=== PATIENT | male | born 1955 | race Caucasian/White ===

== ENCOUNTER → 2024-02-24 08:22 | Outpatient (REF) | payer MEDICARE, OTHER, SELFPAY ==
[2024-02-24 09:38] LABS: % Basophils 0.7 % (0-2); % Eosinophils 2.3 % (0-6); % Immature Granulocytes 0.2 % (0-0.5); % Lymphocytes 34.9 % (20.5-51.1); % Monocytes 10.1 % (1.7-9.3); % Neutrophils 51.8 % (42.2-75.2); Absolute Eosinophils 0.1 10^3/uL (0-0.7); Absolute Lymphocytes 1.5 10^3/uL (1.2-3.4); Absolute Monocytes 0.4 10^3/uL (0.1-0.6); Absolute Neutrophils 2.3 10^3/uL (1.4-6.5); Hematocrit 45.5 % (39.0-52.0); Hemoglobin 15.2 g/dL (13.0-18.0); Mean Corp Hgb Conc. 33.4 g/dL (33.0-37.0); Mean Corpuscular Hgb 30.5 pg (27.0-31.0); Mean Corpuscular Volume 91.4 fL (80.0-94.0); Nucleated Red Blood Cells % 0 % (-); Platelet Count 153 10^3/uL (130-400); Red Blood Cell Count 4.98 10^6/uL (4.70-6.10); Red Cell Dist. Width 12.2 % (11.5-14.5); White Blood Cell Count 4.4 10^3/uL (4.8-10.8)
[2024-02-24 10:11] LABS: ALT (SGPT) 21 U/L (0-50); AST (SGOT) 26 U/L (17-59); Albumin 4.2 g/dl (3.5-5.0); Alkaline Phosphatase 59 U/L (38-126); Blood Urea Nitrogen 23 mg/dl (9-20); Calcium 8.5 mg/dl (8.4-10.2); Carbon Dioxide 30 mmol/L (22-30); Chloride 104 mmol/L (98-107); Glucose 86 mg/dl (70-99); Potassium 4.2 mmol/L (3.5-5.1); Sodium 140 mmol/L (135-145); Total Bilirubin 0.8 mg/dl (0.2-1.3); Total Protein 6.7 g/dl (6.3-8.2); eGFR > 60.00
[2024-02-24 10:36] LABS: PSA, Total - Screen 1.45 ng/ml (0.0-4.0); TSH Reflex To Free T4 0.11 uIU/ml (0.47-4.68)
[2024-02-24 11:06] LABS: Free T4 1.36 ng/dl (0.78-2.19)
== END ==
LOC: HWLAB 08:22
PROVIDERS: ATTENDING PHYSICIAN Internal Medicine
DX: Z00.01 Encounter for general adult medical examination with abnormal findings (principal); E78.5 Hyperlipidemia, unspecified; E03.9 Hypothyroidism, unspecified; E66.3 Overweight; Z12.5 Encounter for screening for malignant neoplasm of prostate
CPT/HCPCS: 36415; 80053; 84439; 84443; 85025; G0103

== ENCOUNTER → 2024-03-13 07:04 | Outpatient (REF) | payer MEDICARE, OTHER, SELFPAY ==
[2024-03-13 10:11] LABS: HDL Cholesterol 51 mg/dl; LDL Cholesterol, Calculated 117 mg/dl; Total Cholesterol 185 mg/dl (50-199); Triglyceride 87 mg/dl (10-149); Very Low Density Lipoprotein 17 mg/dl (0-30)
[2024-03-13 10:42] LABS: TSH Reflex To Free T4 0.21 uIU/ml (0.47-4.68)
[2024-03-13 11:11] LABS: Free T4 1.37 ng/dl (0.78-2.19)
== END ==
LOC: HWLAB 07:04
PROVIDERS: ATTENDING PHYSICIAN Internal Medicine
DX: E03.9 Hypothyroidism, unspecified (principal); E78.5 Hyperlipidemia, unspecified
CPT/HCPCS: 36415; 80061; 84439; 84443

== ENCOUNTER → 2024-06-25 09:22 | Outpatient (REF) | payer MEDICARE, OTHER, SELFPAY | LOC: RAD 09:22 | PROVIDERS: ATTENDING PHYSICIAN Internal Medicine | DX: R00.2 Palpitations (principal); R00.0 Tachycardia, unspecified | CPT/HCPCS: 75571 ==

== ENCOUNTER → 2024-07-03 13:16 | Outpatient (REF) | payer MEDICARE, OTHER, SELFPAY | LOC: RCS 13:16 | PROVIDERS: ATTENDING PHYSICIAN Internal Medicine Cardiovascular Disease; FAMILY PHYSICIAN Internal Medicine | DX: E78.5 Hyperlipidemia, unspecified (principal) | CPT/HCPCS: 93017; 93350 ==

== ENCOUNTER → 2024-07-16 07:44 | Outpatient (REF) | payer MEDICARE, OTHER, SELFPAY ==
[2024-07-16 10:15] LABS: ALT (SGPT) 30 U/L (0-50); AST (SGOT) 33 U/L (17-59); HDL Cholesterol 52 mg/dl; LDL Cholesterol, Calculated 70 mg/dl; Total Cholesterol 142 mg/dl (50-199); Triglyceride 101 mg/dl (10-149); Very Low Density Lipoprotein 20 mg/dl (0-30)
[2024-07-16 10:33] LABS: Free T3 2.97 pg/ml (2.77-5.27); Free T4 1.22 ng/dl (0.78-2.19)
[2024-07-16 10:47] LABS: TSH 1.52 uIU/ml (0.47-4.68)
== END ==
LOC: HWLAB 07:44
PROVIDERS: ATTENDING PHYSICIAN Internal Medicine Cardiovascular Disease; FAMILY PHYSICIAN Internal Medicine
DX: E03.9 Hypothyroidism, unspecified (principal); R93.1 Abnormal findings on diagnostic imaging of heart and coronary circulation; E78.5 Hyperlipidemia, unspecified
CPT/HCPCS: 36415; 80061; 84439; 84443; 84450; 84460; 84481

== ENCOUNTER → 2024-10-08 07:22 | Outpatient (REF) | payer MEDICARE, OTHER, SELFPAY ==
[2024-10-10 14:23] LABS: HDL Particle Size, NMR 8.8 nm (>=8.9); LDL Particle Number, NMR 963 nmol/L (<=1135); LDL Particle Size, NMR 20.7 nm (>=20.7); Large HDL Particle Number, NMR 4.7 umol/L (>=4.2); Large VLDL Particle Number,NMR <1.5 nmol/L (<=2.7); Small LDL Particle Number, NMR 413 nmol/L (<=634)
== END ==
LOC: HWLAB 07:22
PROVIDERS: ATTENDING PHYSICIAN Internal Medicine Cardiovascular Disease; FAMILY PHYSICIAN Internal Medicine
DX: E78.00 Pure hypercholesterolemia, unspecified (principal)
CPT/HCPCS: 36415; 83704

== ENCOUNTER 2024-12-19 06:18 | Day surgery (SDC) | payer MEDICARE, OTHER, SELFPAY | END 2024-12-19 15:15 | disposition home or self-care (01) | LOC: GI 06:18 | PROVIDERS: ATTENDING PHYSICIAN Specialist | DX: Z12.11 Encounter for screening for malignant neoplasm of colon (principal); D12.2 Benign neoplasm of ascending colon; K63.5 Polyp of colon; K57.30 Diverticulosis of large intestine without perforation or abscess without bleeding; K64.8 Other hemorrhoids; Z86.0101 Personal history of adenomatous and serrated colon polyps | CPT/HCPCS: 45385; 88305 ==

== ENCOUNTER → 2025-05-29 13:29 | Outpatient (REF) | payer MEDICARE, OTHER, SELFPAY | LOC: RCS 13:29 | PROVIDERS: ATTENDING PHYSICIAN Internal Medicine Cardiovascular Disease; FAMILY PHYSICIAN Internal Medicine | DX: I48.0 Paroxysmal atrial fibrillation (principal) | CPT/HCPCS: 93307 ==

== ENCOUNTER → 2025-06-18 06:41 | Outpatient (REF) | payer MEDICARE, OTHER, SELFPAY ==
[2025-06-18 10:46] LABS: Hematocrit 47.7 % (39.0-52.0); Hemoglobin 16.3 g/dL (13.0-18.0); INR 1.07; Mean Corp Hgb Conc. 34.2 g/dL (33.0-37.0); Mean Corpuscular Volume 92.6 fL (80.0-94.0); Nucleated Red Blood Cells % 0 % (-); PT 14.2 Sec (11.4-14.6); Platelet Count 150 10^3/uL (130-400); Red Cell Dist. Width 12.2 % (11.5-14.5)
[2025-06-18 10:47] LABS: APTT 30.8 Sec (23.4-35.0)
[2025-06-18 10:55] LABS: ALT (SGPT) 28 U/L (0-50); AST (SGOT) 32 U/L (17-59); Albumin 4.5 g/dl (3.5-5.0); Alkaline Phosphatase 51 U/L (38-126); Blood Urea Nitrogen 22 mg/dl (9-20); Calcium 8.7 mg/dl (8.4-10.2); Carbon Dioxide 31 mmol/L (22-30); Chloride 104 mmol/L (98-107); Glucose 96 mg/dl (70-99); HDL Cholesterol 55 mg/dl; LDL Cholesterol, Calculated 63 mg/dl; Potassium 3.8 mmol/L (3.5-5.1); Sodium 137 mmol/L (135-145); Total Protein 7.4 g/dl (6.3-8.2); Very Low Density Lipoprotein 19 mg/dl (0-30); eGFR > 60.00
[2025-06-18 11:20] LABS: PSA, Total - Screen 1.11 ng/ml (0.0-4.0); TSH 3.09 uIU/ml (0.47-4.68)
== END ==
LOC: HWLAB 06:41
PROVIDERS: ATTENDING PHYSICIAN Internal Medicine; REFERRING PHYSICIAN Internal Medicine Cardiovascular Disease
DX: G45.9 Transient cerebral ischemic attack, unspecified (principal); H53.469 Homonymous bilateral field defects, unspecified side; Z00.01 Encounter for general adult medical examination with abnormal findings; Z12.5 Encounter for screening for malignant neoplasm of prostate; E03.9 Hypothyroidism, unspecified
CPT/HCPCS: 36415; 80053; 80061; 84439; 84443; 85025; 85610; 85652; 85730; G0103